=== PATIENT | male | born 1965 | race Caucasian/White ===

== ENCOUNTER 2022-06-09 14:37 | Outpatient (CLI) | payer BC, SELFPAY ==
--- NOTE | ~2022-06-09 | CT_ITS ---
EXAMINATION: CT abdomen pelvis wo con DATE: 06/09/2022 14:59 INDICATION: Polycystic kidney disease TECHNIQUE: Computed tomography (CT) of the abdomen and pelvis was performed without intravenous contr ast. The dose-length product (DLP) was 1459.05 mGy-cm. Automated exposure control and iterative recon struction technique were employed. COMPARISON: 09/14/2013 FINDINGS: Minimal dependent atelectasis is present in the lung bases. The heart size is normal. A 5 m m nodule of the right lower lobe is consistent with old granulomatous disease. The gallbladder is joanie gically absent. Punctate calcifications in an otherwise normal spleen likely represent healed granulo matous disease. The liver, pancreas, and adrenal glands are normal. There are multiple simple and hem orrhagic cysts of the kidneys. There is a 2 cm exophytic soft tissue density mass projecting at the a nterior aspect of the left kidney on image 67. Similar appearing masses project from the posterior as pect of the mid kidney and lower pole. There are multiple nonobstructing stones of the kidneys. No pa thologically enlarged abdominal or pelvic lymph nodes are identified. There is no free intraperitonea l gas or evidence of bowel obstruction. There are fat-containing inguinal and umbilical hernias. Ther e is severe lumbar spondylosis. IMPRESSION: 1. Polycystic kidney disease with indeterminate soft tissue attenuation masses of the left kidney. Co nsider further evaluation by CT or MRI without and with contrast. Reviewed, dictated and finalized at location B. IMPRESSION: 1. Polycystic kidney disease with indeterminate soft tissue attenuation masses of the left kidney. Consider further evaluation by CT or MRI without and with c ontrast.
== END 2022-06-09 14:38 | disposition home or self-care (01) ==
PROVIDERS: PCP Family Medicine; Visit Provider Internal Medicine Nephrology
DX: I12.9 Hypertensive chronic kidney disease with stage 1 through stage 4 chronic kidney disease, or unspecified chronic kidney disease (principal); N18.1 Chronic kidney disease, stage 1; N28.1 Cyst of kidney, acquired; K40.90 Unilateral inguinal hernia, without obstruction or gangrene, not specified as recurrent; K42.9 Umbilical hernia without obstruction or gangrene
CPT/HCPCS: 74176

== ENCOUNTER 2023-04-25 15:04 | Outpatient (CLI) | payer BC, SELFPAY ==
[2023-04-25 15:53] LABS: Basophils Absolute Auto 0.1 K/mm3 (0.0-0.1); Basophils Percent Auto 1.2 % (0.2-1.2); Eosinophils Absolute Auto 0.1 K/mm3 (0-0.3); Eosinophils Percent Auto 2.2 % (0-4.4); Hematocrit 42.6 % (42.0-52.0); Hemoglobin 14.3 g/dL (14.0-18.0); Immature Granulocyte Absolute 0.02 K/mm3 (0.00-0.031); Immature Granulocyte Percent A 0.3 % (0-0.5); Lymphocytes Absolute Auto 1.62 K/mm3 (0.9-3.2); Lymphocytes Percent Auto 27.8 % (18.3-44.2); Mean Corpuscular HGB Conc 33.6 g/dl (32-36); Mean Corpuscular Hemoglobin 31.8 pg (26-34); Mean Corpuscular Volume 94.7 fl (80-100); Mean Platelet Volume 8.5 fl (7.4-10.4); Monocytes Absolute Auto 0.5 K/mm3 (0.1-0.6); Monocytes Percent Auto 9.3 % (2.6-8.5); Neutrophils Absolute Auto 3.5 K/mm3 (1.3-6.7); Neutrophils Percent Auto 59.2 % (45.5-73.1); Platelet Count Result 240 k/mm3 (150-375); Red Cell Distribution Width 12.8 % (11.5-14.5); White Blood Count 5.8 K/mm3 (4.5-10.0)
[2023-04-25 16:05] LABS: Alanine Aminotransferase 29 U/L (6-50); Albumin Level 4.6 g/dL (3.5-5.1); Alkaline Phosphatase 57 U/L (38-126); Anion Gap 9 mmol/L (8-16); Aspartate Amino Transferase 29 U/L (17-59); Bilirubin,Total 0.6 mg/dL (0.2-1.3); Blood Urea Nitrogen 25 mg/dL (9-20); Calcium 9.2 mg/dL (8.4-10.2); Carbon Dioxide 28 mmol/L (22-30); Chloride 102 mmol/L (98-107); Cholesterol 215 mg/dL (0-200); Estimated Glomerular Filt Rate > 60; Glucose 102 mg/dL (65-110); HDL Direct 37 mg/dL; Potassium 4.1 mmol/L (3.4-5.0); Sodium 139 mmol/L (137-145); Triglycerides 151 mg/dL (<150)
[2023-04-25 16:16] LABS: LDL Cholesterol Direct 127 mg/dL
[2023-04-25 16:36] LABS: Prostate Specific Antigen 1.3 ng/mL (< OR = 4.0)
[2023-04-25 21:53] LABS: Hemoglobin A1C 5.9 % (<5.7)
== END 2023-04-25 15:05 | disposition home or self-care (01) ==
LOC: ANHLAB 15:08
PROVIDERS: PCP Family Medicine; Visit Provider Family Medicine
DX: Z00.00 Encounter for general adult medical examination without abnormal findings (principal); Z13.220 Encounter for screening for lipoid disorders; Z79.899 Other long term (current) drug therapy; R63.5 Abnormal weight gain
CPT/HCPCS: 36415; 80048; 80061; 80076; 83036; 84153; 84443; 85025; G0103